=== PATIENT | female | born 1940 | race Two or more races ===

== ENCOUNTER 2018-01-05 16:40 | Inpatient (IN) | payer OTHER ==
[~2018-01-05] VITALS: Ht 149.9 cm; Wt 50.5 kg
[2018-01-05] MEDS ORDERED: SODIUM CHLORIDE 0.9% 1,000 ML IV ONE (17:01)
[2018-01-05] MEDS ORDERED: NITROGLYCERIN 0.4 MG SL TAB SL ONE (17:15)
[2018-01-05] MEDS ORDERED: ASPirin 81 mg TAB PO ONE (17:15)
[2018-01-05 17:37] LABS: Basophils # (auto) 0 uL; Basophils % (auto) 0.4 % (0.0-2.0); Eosinophils # (auto) 0.1 uL; Eosinophils % (auto) 0.9 % (0.0-7.0); Hematocrit 40.8 % (36.0-46.0); Hemoglobin 13.5 g/dL (12.2-16.2); Lymphocytes # (auto) 1.5 uL; Lymphocytes % (auto) 25.7 % (10.0-50.0); Mean Corpuscular Hemoglobin 29.4 pg (28.0-32.0); Mean Corpuscular Hgb Conc. 33.2 g/dL (32.0-36.0); Mean Corpuscular Volume 88.5 fL (80.0-100.0); Monocytes # (auto) 0.6 uL; Monocytes % (auto) 10.6 % (0.0-12.0); Neutrophils # (auto) 3.7 uL; Neutrophils % (auto) 62.4 % (37.0-80.0); Platelet Count (auto) 191 10^3/uL (140-450); Red Blood Cells 4.61 10^6/uL (4.0-5.20); Red Cell Distribution Width 13.1 % (11.8-14.3)
[2018-01-05 17:50] LABS: INR 1.02 (0.9-1.15); Partial Thromboplastin Time 27.6 sec (23.78-33.04); Prothrombin Time 10.9 sec (9.27-12.13)
[2018-01-05 17:55] LABS: Alanine Aminotransferase 31 U/L (13-56); Albumin 3.1 g/dL (3.4-5.0); Anion Gap 8 (5-15); Aspartate Aminotransferase 19 U/L (15-37); BUN/Creatinine Ratio 13.6; Blood Urea Nitrogen 9 mg/dL (7-18); Calcium 7.7 mg/dL (8.5-10.1); Carbon Dioxide 28 mmol/L (21-32); Chloride 106 mmol/L (98-107); GFR African American 111 mL/min; GFR Non-African American 92 mL/min; Glucose 192 mg/dL (74-106); Sodium 142 mmol/L (136-145)
[2018-01-05 18:00] LABS: Alkaline Phosphatase 72 U/L (45-117); Bilirubin, Total 0.2 mg/dL (0.2-1.0); Total Protein 6.7 g/dL (6.4-8.2)
[2018-01-05] MEDS ORDERED: DEXTROSE (50%) 50ML SYRG IV PRN (19:45)
[2018-01-05] MEDS ORDERED: LACTULOSE 20Gm/30ML SOLN PO PRN (19:45)
[2018-01-05] MEDS ORDERED: LABETALOL HCL 5 MG/ML ML 20ML VIAL IV PRN ×2 (19:45)
[2018-01-05] MEDS ORDERED: LORazepam 0.5 MG TAB PO PRN (19:45)
[2018-01-05] MEDS ORDERED: TEMAZEPAM 15 MG CAP PO PRN (19:45)
[2018-01-05] MEDS ORDERED: PROMETHAZINE HCL 25 MG/ML 1ML IV PRN (19:45)
[2018-01-05] MEDS ORDERED: NITROGLYCERIN 0.4 MG SL TAB SL PRN (19:45)
[2018-01-05] MEDS ORDERED: HYDROcodone-ACET 5/325MG TAB PO PRN (19:45)
[2018-01-05] MEDS ORDERED: MORPHINE SULFATE 8mg/ml INJ SDV IV PRN ×2 (19:45)
[2018-01-05] MEDS ORDERED: ACETAMINOPHEN 500 MG TAB PO PRN (19:45)
[2018-01-05 21:07] LABS: Urine Bacteria NONE SEEN /hpf (None Seen); Urine Blood Negative /uL (Negative); Urine Specific Gravity 1.006 (1.001-1.035); Urine WBC 2 /hpf (0 - 5)
[2018-01-05 22:00] VITALS: BP 122/62
[2018-01-05] MEDS ORDERED: ATORVASTATIN 20 MG TAB PO SCH (22:00)
[2018-01-05] MEDS: SODIUM CHLOR 0.9% PF (SALINE LOCK) 10ML VIAL/SYR IV SCH (22:40)
[2018-01-05] MEDS: METOPROLOL TARTRATE 25 MG TAB PO SCH (22:41)
[2018-01-05] MEDS: ACCU-CHEK COMFORT CURVE STRIP VI SCH (22:41)
[2018-01-05] MEDS: InsuLIN REG 1unit/0.01ml Soln (100units/ml) SC SCH (22:41)
[2018-01-05] MEDS ORDERED: METF-370 PO (22:59)
[2018-01-05] MEDS ORDERED: LOSA25TA9 PO (22:59)
[2018-01-06 04:51] VITALS: BP 128/65
[2018-01-06] MEDS: ACCU-CHEK COMFORT CURVE STRIP VI SCH ×2 (06:01→11:22)
[2018-01-06] MEDS: SODIUM CHLOR 0.9% PF (SALINE LOCK) 10ML VIAL/SYR IV SCH (06:01)
[2018-01-06] MEDS: InsuLIN REG 1unit/0.01ml Soln (100units/ml) SC SCH ×2 (06:01→11:29)
[2018-01-06 08:10] VITALS: BP 155/56
[2018-01-06 08:28] LABS: Cholesterol 103 mg/dL (< 200); HDL Cholesterol 31 mg/dL (40-59); LDL Cholesterol 72 mg/dL (< 100); Triglycerides 74 mg/dL (< 150)
[2018-01-06] MEDS ORDERED: ENOXAPARIN SOD 30 MG/0.3 ML SYRINGE SC SCH (10:00)
[2018-01-06] MEDS ORDERED: NITROGLYCERIN 0.2MG/HR TOPICAL PATCH TD SCH (10:00)
[2018-01-06] MEDS ORDERED: PANTOPRAZOLE 40 MG TAB PO SCH (10:00)
[2018-01-06] MEDS ORDERED: ASPirin 81 mg TAB PO SCH (10:00)
[2018-01-06] MEDS: METOPROLOL TARTRATE 25 MG TAB PO SCH (10:02)
[2018-01-06 11:13] VITALS: BP 160/59
[2018-01-06 12:10] VITALS: BP 119/54
[2018-01-08 12:33] LABS: Free T4 (Free Thyroxine) 1.05 ng/dL (0.89-1.76)
[2018-01-08 12:34] LABS: Free T3 2.17 pg/mL (2.3-4.2)
== END 2018-01-06 14:29 | disposition home or self-care (01) | DRG 305 ==
LOC: ER 16:44 → TELE 16:45 → TELE-CENTR 21:40
PROVIDERS: ADMIT Internal Medicine; ATTEND Family Medicine
DX: I16.0 Hypertensive urgency (principal); I24.9 Acute ischemic heart disease, unspecified; R07.89 Other chest pain; E11.9 Type 2 diabetes mellitus without complications; I10 Essential (primary) hypertension; K59.00 Constipation, unspecified; F41.9 Anxiety disorder, unspecified; R78.89 Finding of other specified substances, not normally found in blood; G47.00 Insomnia, unspecified; Z88.5 Allergy status to narcotic agent; Z79.899 Other long term (current) drug therapy
CPT/HCPCS: 36415; 71045; 80053; 80061; 81001; 82550; 82962; 83036; 83880; 84439; 84443; 84481; 84484; 85025; 85379; 85610; 85652; 85730; 86141; 93005; 93306; 96360; J1815

== ENCOUNTER 2018-07-04 10:37 | Emergency (ER) | payer OTHER ==
[~2018-07-04] VITALS: Ht 142.2 cm; Wt 45.4 kg
[~2018-07-04 10:37] MED LIST: LOSA25TA40 PO; METF-370 PO
[2018-07-04 12:29] VITALS: BP 156/49
[2018-07-04] MEDS ORDERED: ACETAMINOPHEN 500 MG TAB PO ONE (13:00)
== END 2018-07-04 13:40 | disposition home or self-care (01) ==
LOC: ER 10:37
DX: G44.209 Tension-type headache, unspecified, not intractable (principal); E11.9 Type 2 diabetes mellitus without complications; I10 Essential (primary) hypertension; R11.0 Nausea
CPT/HCPCS: 70450; 82962

== ENCOUNTER 2019-09-19 01:34 | Emergency (ER) | payer OTHER ==
[~2019-09-19] VITALS: Ht 152.4 cm; Wt 47.2 kg
[~2019-09-19 01:34] MED LIST changes: +LOSA25TA38 PO; -LOSA25TA40 PO
[2019-09-19 03:23] LABS: Urine Bacteria FEW /hpf (None Seen); Urine Blood Negative /uL (Negative); Urine Mucus FEW (None Seen); Urine Specific Gravity 1.017 (1.001-1.035); Urine WBC 1 /hpf (0 - 5)
[2019-09-19 03:25] LABS: Basophils # (auto) 0 uL; Basophils % (auto) 0.5 % (0.0-2.0); Eosinophils # (auto) 0 uL; Eosinophils % (auto) 0.5 % (0.0-7.0); Hematocrit 41.9 % (36.0-46.0); Hemoglobin 14.4 g/dL (12.2-16.2); Lymphocytes # (auto) 1.8 uL; Lymphocytes % (auto) 22.6 % (10.0-50.0); Mean Corpuscular Hemoglobin 30.3 pg (28.0-32.0); Mean Corpuscular Hgb Conc. 34.4 g/dL (32.0-36.0); Monocytes # (auto) 0.6 uL; Monocytes % (auto) 8.1 % (0.0-12.0); Neutrophils # (auto) 5.5 uL; Neutrophils % (auto) 68.3 % (37.0-80.0); Nucleated Red Blood Cells % 0.1 %; Platelet Count (auto) 171 10^3/uL (140-450); Red Blood Cells 4.76 10^6/uL (4.0-5.20); Red Cell Distribution Width 12.2 % (11.8-14.3)
[2019-09-19 03:40] LABS: INR 1.13 (0.9-1.15); Partial Thromboplastin Time 23.2 sec (23.64-32.05)
[2019-09-19 03:43] LABS: Alanine Aminotransferase 40 U/L (13-56); Albumin 3.9 g/dL (3.4-5.0); Anion Gap 7 (5-15); Aspartate Aminotransferase 21 U/L (15-37); BUN/Creatinine Ratio 24.3; Blood Urea Nitrogen 18 mg/dL (7-18); Calcium 9.1 mg/dL (8.5-10.1); Carbon Dioxide 27 mmol/L (21-32); Chloride 97 mmol/L (98-107); GFR African American 97 mL/min; GFR Non-African American 80 mL/min; Glucose 219 mg/dL (74-106); Magnesium 1.8 mg/dL (1.6-2.6); Potassium 3.8 mmol/L (3.5-5.1); Sodium 131 mmol/L (136-145)
[2019-09-19 03:48] LABS: Alkaline Phosphatase 75 U/L (45-117); Bilirubin, Total 0.5 mg/dL (0.2-1.0); Total Protein 7.9 g/dL (6.4-8.2)
[2019-09-19] MEDS ORDERED: LORazepam 2MG/ML-1ML VIAL IV ONE (06:30)
[2019-09-19 07:30] VITALS: BP 126/50
== END 2019-09-19 08:19 | disposition home or self-care (01) ==
LOC: ER 01:34
DX: F41.9 Anxiety disorder, unspecified (principal); R42 Dizziness and giddiness; R51 Headache; E11.9 Type 2 diabetes mellitus without complications; I10 Essential (primary) hypertension
CPT/HCPCS: 36415; 70450; 71046; 80053; 81001; 82962; 83735; 83880; 84484; 85025; 85610; 85730; 93005; 96374; 99285; J2060

== ENCOUNTER 2019-10-04 11:14 | Emergency (ER) | payer OTHER ==
[~2019-10-04] VITALS: Ht 129.5 cm; Wt 47.6 kg
[2019-10-04 11:23] VITALS: BP 123/51
[2019-10-04] MEDS ORDERED: cefTRIAXone SOD 1,000 MG VL IM ONE (12:30)
== END 2019-10-04 12:56 | disposition home or self-care (01) ==
LOC: ER 11:14
DX: J20.9 Acute bronchitis, unspecified (principal); J02.9 Acute pharyngitis, unspecified; E11.9 Type 2 diabetes mellitus without complications; I10 Essential (primary) hypertension
CPT/HCPCS: 71046; 93005; 96372; 99283; J0696

== ENCOUNTER 2019-10-09 13:14 | Emergency (ER) | payer OTHER ==
[~2019-10-09] VITALS: Ht 134.6 cm; Wt 47.6 kg
[2019-10-09 14:14] LABS: Basophils # (auto) 0 10 ^3/uL (0-0.2); Basophils % (auto) 0.3 % (0.0-2.0); Eosinophils # (auto) 0 10 ^3/uL (0-0.8); Hematocrit 40.8 % (36.0-46.0); Hemoglobin 13.8 g/dL (12.2-16.2); Lymphocytes # (auto) 1.5 10 ^3/uL (0.4-5.4); Mean Corpuscular Hemoglobin 30.3 pg (28.0-32.0); Mean Corpuscular Hgb Conc. 33.8 g/dL (32.0-36.0); Mean Corpuscular Volume 89.7 fL (80.0-100.0); Monocytes # (auto) 0.4 10 ^3/uL (0-1.3); Monocytes % (auto) 5.5 % (0.0-12.0); Neutrophils # (auto) 5.3 10 ^3/uL (1.6-8.6); Neutrophils % (auto) 73.2 % (37.0-80.0); Nucleated Red Blood Cells % 0.1 %; Platelet Count (auto) 141 10^3/uL (140-450); Red Blood Cells 4.55 10^6/uL (4.0-5.20); Red Cell Distribution Width 12.3 % (11.8-14.3); White Blood Cell 7.2 10^3/uL (4.4-10.8)
[2019-10-09 14:32] LABS: Albumin 3.9 g/dL (3.4-5.0); BUN/Creatinine Ratio 14.8; Calcium 8.8 mg/dL (8.5-10.1); Potassium 4.1 mmol/L (3.5-5.1)
[2019-10-09 14:35] LABS: Bilirubin, Total 0.4 mg/dL (0.2-1.0); Total Protein 7.8 g/dL (6.4-8.2)
[2019-10-09 16:15] LABS: Urine WBC None Seen /hpf (0 - 5)
[2019-10-09 16:21] LABS: Urine Bacteria NONE SEEN /hpf (None Seen); Urine Blood Negative /uL (Negative); Urine Specific Gravity 1.004 (1.001-1.035)
[2019-10-09 17:54] LABS: INR 1.07 (0.9-1.15); Partial Thromboplastin Time 26.8 sec (23.64-32.05)
[2019-10-09] MEDS ORDERED: cefTRIAXone 1GM/50ML D5W 50 ML IV ONE (21:15)
[2019-10-09 22:00] VITALS: BP 131/61
== END 2019-10-09 23:20 | disposition home or self-care (01) ==
LOC: ER 13:14
DX: J20.9 Acute bronchitis, unspecified (principal); R06.02 Shortness of breath; E11.9 Type 2 diabetes mellitus without complications; I10 Essential (primary) hypertension; E78.5 Hyperlipidemia, unspecified
CPT/HCPCS: 36415; 71045; 80053; 81001; 82962; 83880; 84443; 84484; 85025; 85379; 85610; 85730; 93005; 96365; 99285; J0696

== ENCOUNTER 2021-02-06 11:52 | Emergency (ER) | payer OTHER ==
[~2021-02-06] VITALS: Ht 142.2 cm; Wt 49.9 kg
[2021-02-06 13:52] VITALS: BP 148/41
== END 2021-02-06 14:30 | disposition home or self-care (01) ==
LOC: ER 11:52
DX: S01.03XA Puncture wound without foreign body of scalp, initial encounter (principal); R51.9 Headache, unspecified; F41.9 Anxiety disorder, unspecified; E11.9 Type 2 diabetes mellitus without complications; E78.5 Hyperlipidemia, unspecified; I10 Essential (primary) hypertension; Z88.5 Allergy status to narcotic agent; Z79.84 Long term (current) use of oral hypoglycemic drugs; Z79.899 Other long term (current) drug therapy; W01.198A Fall on same level from slipping, tripping and stumbling with subsequent striking against other object, initial encounter; Y93.89 Activity, other specified; Y92.89 Other specified places as the place of occurrence of the external cause; Y99.8 Other external cause status
CPT/HCPCS: 70450; 93005

== ENCOUNTER 2025-01-21 09:54 | Emergency (ER) | payer MEDICARE, OTHER ==
[~2025-01-21] VITALS: Ht 157.5 cm; Wt 52.3 kg
[~2025-01-21 09:54] MED LIST changes: +LOSA-533 PO; -LOSA25TA38 PO
--- NOTE | 2025-01-21 10:06 | ECG ---
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
--- NOTE | 2025-01-21 10:07 | ED.PDOC ---
History of Present Illness HPI Comments 84-year-old female brought by paramedics because her family member stated that she has been having high blood sugar since yesterday. She was given two metformin still decreased her blood sugar which was high yesterday. This morning patient woke up with a blood sugar of 366. She does have a history of diabetes and hypertension. She does take metformin for her blood sugar. She is also complaining of mild chest discomfort. Denies headache dizziness nausea vomiting. Denies any other symptoms. Time Seen by MD: 09:58 Primary Care Provider: None Reviewed Notes: Nurses Notes, Medications, Allergies Allergies: Coded Allergies: Codeine (Verified Allergy, Unknown, 01/05/18) No Known Drug Allergy (Verified Allergy, Unknown, 07/04/18) Home Meds Reported Medications Losartan Potassium (Losartan Potassium) 25 Mg Tab, PO DAILY for 30 Days, MG 01/05/18 Metformin Hydrochloride (Metformin Hcl) 500 Mg Tab, 500 MG PO DAILY for 30 Days, MG 01/05/18 Information Source: Patient, Emergency Med Personnel Mode of Arrival: EMS Severity: Moderate Timing: Days Duration: Since onset Past Medical History PAST MEDICAL HISTORY: Anxiety, DM, High Lipids, HTN Surgical History: Denies all surgeries 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 FEEDER 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: 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 History Family History Family History: Reviewed,noncontributory to illness Social History Smoker: Non-Smoker Alcohol: Denies ETOH Use Drugs: Denies Drug Use Lives In: Home Constitutional: denies: chills, diaphoresis, fatigue, fever, malaise, sweats, weakness, others EENTM: denies: blurred vision, double vision, ear bleeding, ear discharge, ear drainage, ear pain, ear ringing, eye pain, eye redness, hearing loss, mouth pain, mouth swelling, nasal discharge, nose bleeding, nose congestion, nose pain, photophobia, tearing, throat pain, throat swelling, voice changes, others Respiratory: denies: cough, hemoptysis, orthopnea, SOB at rest, shortness of breath, SOB with excertion, stridor, wheezing, others Cardiovascular: reports: chest pain; denies: dizzy spells, diaphoresis, Dyspnea on exertion, edema, irregular heart beat, left arm pain, lightheadedness, palpitations, PND, syncope, others Gastrointestinal: denies: abdomen distended, abdominal pain, blood streaked bowels, constipated, diarrhea, dysphagia, difficulty swallowing, hematemesis, melena, nausea, poor appetite, poor fluid intake, rectal bleeding, rectal pain, vomiting, others Genitourinary: denies: abnormal vagina bleeding, burning, dyspareunia, dysuria, flank pain, frequency, hematuria, incontinence, pain, , vagina discharge, urgency, others Neurological: denies: dizziness, fainting, headache, left sided numbness, left sided weakness, numbness, paresthesia, pre-existing deficit, right sided numbness, right sided weakness, seizure, speech problems, tingling, tremors, weakness, others Musculoskeletal: denies: back pain, gout, joint pain, joint swelling, muscle pain, muscle stiffness, neck pain, others Integumetry: denies: bruises, change in color, change in hair/nails, dryness, laceration, lesions, lumps, rash, wounds, others Allergic/Immunocompromised: denies: Difficulty Healing, Frequent Infections, Hives, Itching, others Hematologic/Lymphatic: denies: anemia, blood clots, easy bleeding, easy bruising, swollen glands, others Endocrine: denies: excessive hunger, excessive sweating, excessive thirst, excessive urination, flushing, intolerance to cold, intolerance to heat, unexplained weight gain, unexplained weight loss, others Psychiatric: denies: anxiety, bipolar disorder, depression, hopeless, panic disorder, schizophrenia, sleepless, suicidal, others Physical Exam General Appearance: Moderate Distress HEENT: Normal ENT Inspection, Pharynx Normal, TMs Normal Neck: Full Range of Motion, Non-Tender, Normal, Normal Inspection Respiratory: Chest Non-Tender, Lungs Clear, No Accessory Muscle Use, No Respiratory Distress, Normal Breath Sounds Cardiovascular: No Edema, No JVD, No Murmur, No Gallop, Normal Peripheral Pulses, Regular Rate/Rhythm Breast Exam: Deferred Gastrointestinal: No Organomegaly, Non Tender, No Pulsatile Mass, Normal Bowel Sounds, Soft Genitalia: Deferred Pelvic: Deferred Rectal: Deferred Extremities: No calf tenderness, Normal capillary refill, Normal inspection, Normal range of motion, Non-tender, No pedal edema Musculoskeletal : Apperance: Normal Neurologic: Alert, media relations director II-XII nml as Tested, No Motor Deficits, Normal Affect, Normal Mood, No Sensory Deficits Cerebellar Function: NOT DONE Reflexes: NOT DONE Skin: Dry, Normal Color, Warm Peripheral Pulses: 3+ Radial (R), 3+ Radial (L) Lymphatic: No Adenopathy Was a procedure done? Was a procedure done?: No EKG EKG : Pulse Rate (adult): 76 Cardiac Rhythm: NSR Differential Dx Considerations may include: Hyperglycemia Hypertension X-Ray, Labs, Meds, VS Vital Signs Date Time Temp Pulse Resp B/P (MAP) Pulse Ox O2 Delivery O2 Flow Rate FiO2 01/21/25 10:07 76 01/21/25 09:58 76 Patient alert. Blood sugar elevated. Vitals stable. Answering questions. EKG reviewed does not show any acute changes. Was given insulin. Reviewed her history. Explained to the patient. Continue cardiac monitoring. Time of 1ST Reevaluation: 10:05 Reevaluation 1ST: Improved Patient Education/Counseling: Diagnosis, Treatment, Prognosis, Need For Follow Up Family Education/Counseling: No Family Present SEPSIS Sepsis Screen Physician Orders Troponin-I Hs (01/21/25 09:58) Complete Blood Count (01/21/25 09:58) Urinalysis (01/21/25 09:58) Basic Metabolic Panel (01/21/25 09:58) Vital Signs Date Time Temp Pulse Resp B/P (MAP) Pulse Ox O2 Delivery O2 Flow Rate FiO2 01/21/25 10:07 76 01/21/25 09:58 76 Departure 1 Departure Time of Disposition: 10:06 Impression: Primary Impression: Uncontrolled diabetes mellitus Qualified Codes: E13.65 - Other specified diabetes mellitus with hyperglycemia Disposition: ADMITTED INPATIENT Admit to: Med Surg Condition: Guarded Critical Care Note Critical Care Time?: Yes (45 min-critical care time only) Critical care comment: Monitoring chest pain Stability Stability form required: No Heart Score Heart Score: Heart Score Response (Comments) Value History Slightly Suspicious 0 EKG Normal 0 Age >65 2 Risk Factors >3 or Hx ASHD 2 Troponin Normal limit 0 Total 4 PRESTON HASSAN MD Jan 21, 2025 10:07
[2025-01-21 10:28] LABS: Basophils # (auto) 0 10 ^3/uL (0-0.2); Basophils % (auto) 0.4 % (0.0-2.0); Eosinophils # (auto) 0.1 10 ^3/uL (0-0.8); Eosinophils % (auto) 0.8 % (0.0-7.0); Hematocrit 46.8 % (36.0-46.0); Lymphocytes # (auto) 1.3 10 ^3/uL (0.4-5.4); Lymphocytes % (auto) 15.1 % (10.0-50.0); Mean Corpuscular Hemoglobin 30.5 pg (28.0-32.0); Mean Corpuscular Hgb Conc. 34.2 g/dL (32.0-36.0); Monocytes # (auto) 0.5 10 ^3/uL (0-1.3); Monocytes % (auto) 5.9 % (0.0-12.0); Neutrophils # (auto) 6.6 10 ^3/uL (1.6-8.6); Neutrophils % (auto) 77.8 % (37.0-80.0); Platelet Count (auto) 179 10^3/uL (140-450); Red Blood Cells 5.26 10^6/uL (4.0-5.20); Red Cell Distribution Width 12.7 % (11.8-14.3); White Blood Cell 8.5 10^3/uL (4.4-10.8)
[2025-01-21 10:36] LABS: Chloride 101 mmol/L (98-107); Sodium 137 mmol/L (136-145)
[2025-01-21 10:37] LABS: Anion Gap 10 (5-15); Carbon Dioxide 26 mmol/L (20-31)
[2025-01-21 10:38] LABS: Calcium 10.1 mg/dL (8.7-10.4)
[2025-01-21 10:43] LABS: BUN/Creatinine Ratio 15.4 (10.0-20.0); Blood Urea Nitrogen 12 mg/dL (9-23); Glucose 339 mg/dL (74-106)
[2025-01-21] MEDS: InsuLIN REG 1unit/0.01ml Soln (100units/ml) IV ONE (12:05)
[2025-01-21 12:24] VITALS: BP 185/46; PULSE 66; RESP 18; TEMP 98.1; O2SAT 61
== END 2025-01-21 13:18 | disposition home or self-care (01) ==
LOC: ER 09:54 → EDBD 09:54 → ER 13:17
DX: E11.65 Type 2 diabetes mellitus with hyperglycemia (principal); I10 Essential (primary) hypertension; Z79.899 Other long term (current) drug therapy; Z88.5 Allergy status to narcotic agent
CPT/HCPCS: 36415; 80048; 82947; 84484; 85025; 93005; 96374; 99284; J1815; 82962